=== PATIENT | male | born 1980 | race Caucasian/White ===

== ENCOUNTER → 2017-10-29 | Outpatient (CLI) | payer OTHER ==
--- NOTE | 2017-11-01 07:48 | Diagnostic Imaging Report ---
Exam: Lumbar spine MRI without IV contrast History: Herniated disc, low back pain Comparison studies: None Technique: Sagittal and axial T2 , sagittal T1 and IR, axial spin density oblique. Intravenous contrast: None Findings: Number of lumbar vertebral bodies: 5. Alignment: Straight lumbar curvature. No scoliosis. Soft tissues: No T2 hyperintense inflammatory changes. Paraspinal muscles: No signal abnormalities. Well-preserved. No atrophic changes Lower thoracic cord: Normal in signal and morphology. The tip of the conus is at L2. Cauda equina: No masses. No arachnoiditis. Vertebrae: No compression fractures, infection or neoplasm. Degenerative changes: L1-L2: No abnormalities L2-L3: No abnormalities L3-L4: Mildly degenerated disc with loss of T2 disc signal. Small disc bulge with central annular fissure without canal or foraminal stenosis. L4-L5: Mildly degenerated disc with mild loss of disc height and T2 disc signal. Minimal retrolisthesis of L4 and L5 with associated uncovered disc/disc bulge with small central disc extrusion and mild facet arthrosis which result in only mild canal stenosis. No significant foraminal stenosis. No nerve root impingement. L5-S1: Subtle irregularity along the left lamina, possibly congenital or related to previous surgery if there is a history of previous laminotomy. Moderately degenerated disc with loss of disc height and loss of T2 disc signal. Minimal retrolisthesis of L5 on S1 with associated disc osteophyte complex, superimposed 5 mm rest subarticular disc extrusion mild facet arthrosis with moderate left and mild right foraminal stenosis. No significant canal stenosis. Disc osteophyte with small disc protrusion or scar tissue on the left contact the left S1 nerve root. IMPRESSION: 1. Disc degeneration, mild from L3 to L5, moderate at L5-S1. 2. Mild degenerative canal stenosis with small central disc protrusion at L4-5. 3. Moderate left and mild right degenerative foraminal stenosis at L5-S1. 4. Disc osteophyte complex with small right subarticular disc extrusion at L5-S1 without canal stenosis or right S1 nerve root compression. L5-S1 disc osteophyte complex with small central disc protrusion or possibly scar tissue contact the left S1 nerve root, significance of which could be correlated for S1 radiculopathy symptoms. Possible previous left L5-S1 laminotomy, to be correlated with surgical history. Signed by: Dr. Mars Juárez M.D. on 11/01/2017 7:45 AM
== END ==
LOC: MRI 10:25
PROVIDERS: ATTEND Specialist
DX: M54.5 Low back pain (principal); M51.26 Other intervertebral disc displacement, lumbar region
CPT/HCPCS: 72148